=== PATIENT | male | born 1955 | race Caucasian/White ===

== ENCOUNTER 2017-12-13 11:14 | Day surgery (SDC) | payer OTHER ==
[~2017-12-13 11:14] MED LIST: CEFAZOLIN 2 GM/50 ML (PMX) 50 ML IVPB; SOD CHLORIDE 0.9% 1,000 ML IV
[2017-12-13] MEDS ORDERED: FENTAnyl 50 MCG/ML VIAL ×2 (14:23→16:11)
[2017-12-13] MEDS ORDERED: ONDANSETRON 4 MG INJ (14:23)
[2017-12-13] MEDS ORDERED: GLYCOPYRROLATE 0.4 MG INJ (14:23)
[2017-12-13] MEDS ORDERED: MIDAZOLAM 1 MG/ML 2 ML INJ (14:23)
[2017-12-13] MEDS ORDERED: PROPOFOL 20 ML (14:23)
[2017-12-13] MEDS ORDERED: CEFAZOLIN 1 GM INJ (14:23)
[2017-12-13] MEDS ORDERED: ROCURONIUM 50 MG INJ (14:23)
[2017-12-13] MEDS ORDERED: NEOSTIGMINE 3 MG/3 ML SYRINGE (14:23)
[2017-12-13] MEDS ORDERED: DEXAMETHASONE 4 MG/ML 1 ML INJ (14:24)
[2017-12-13] MEDS ORDERED: MIDAZOLAM 1 MG/ML 2 ML INJ IV (14:30)
[2017-12-13] MEDS ORDERED: ALBUTEROL 0.083% (NEB) 2.5 MG/3 ML AMP HHN (14:30)
[2017-12-13] MEDS ORDERED: IPRATROPIUM (NEB) 0.5 MG/2.5 ML AMP HHN (14:30)
[2017-12-13] MEDS ORDERED: hydrALAzine 20 MG INJ IV (14:30)
[2017-12-13] MEDS ORDERED: FENTAnyl 50 MCG/ML VIAL IV ×2 (14:30)
[2017-12-13] MEDS ORDERED: TRIMETHOBENZAMIDE 100 MG/ML VIAL IM (14:30)
[2017-12-13] MEDS ORDERED: MEPERIDINE 25 MG INJ IV (14:30)
[2017-12-13] MEDS ORDERED: DIPHENHYDRAMINE 50 MG INJ IV (14:30)
[2017-12-13] MEDS ORDERED: EPHEDrine SULFATE 50 MG/5 ML SYG IV (14:30)
[2017-12-13] MEDS ORDERED: ONDANSETRON 4 MG INJ IV (14:30)
[2017-12-13] MEDS ORDERED: HYDROmorphONE 1 MG/5 ML IV SYRINGE IV ×3 (14:30)
[2017-12-13] MEDS ORDERED: LABETALOL HCL 20MG INJ IV (14:30)
[2017-12-13] MEDS ORDERED: OXYCODONE/ACETAMINOPHEN (5/325) TAB PO ×2 (14:30)
[2017-12-13] MEDS: BUPIVACAINE 0.25% (MPF) 30 ML INJ (14:54)
[2017-12-13] MEDS ORDERED: SUGAMMADEX SODIUM 200 MG/2 ML VIAL IV (14:56)
[2017-12-13] MEDS ORDERED: HYDROCODONE/APAP (5/325) TAB PO (15:30)
[2017-12-13] MEDS: FENTAnyl 50 MCG/ML VIAL IV (16:17)
== END 2017-12-13 17:53 | disposition home or self-care (01) ==
LOC: SDS 11:14
DX: D17.21 Benign lipomatous neoplasm of skin and subcutaneous tissue of right arm (principal); D17.0 Benign lipomatous neoplasm of skin and subcutaneous tissue of head, face and neck; F17.200 Nicotine dependence, unspecified, uncomplicated; E11.9 Type 2 diabetes mellitus without complications
CPT/HCPCS: 14021; 82962; 88307